=== PATIENT | male | born 1965 | race Two or more races ===

== ENCOUNTER 2018-07-29 11:19 | Inpatient (IN) | payer OTHER ==
[2018-07-29 11:45] VITALS: BMI 31.0
--- NOTE | 2018-07-29 13:32 | HP ---
CIWA Score - Admission Criteria [facility] Guidelines: Admission for Medically Managed Detox: Requires at least one of the followin. CIWA greater than 12 2. Seizures within the past 24 hours 3. Delirium tremens within the past 24 hours 4. Hallucinations within the past 24 hours 5. Acute intervention needed for co occurring medical disorder 6. Acute intervention needed for co occurring psychiatric disorder 7. Severe withdrawal that cannot be handled at a lower level of care (continued vomiting, continued diarrhea, abnormal vital signs) requiring intravenous medication and/or fluids 8. 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 utox + bzo cocaine : crack 200 $/day latest use 2 weeks ago , denies IVDU , denies current daily use tobacco : occasional use cannabis : occasional PMHX : liver disease PShx :brain surgery for ICH 12 years ago at [facility] psych : denies SHx : lives in assisted, homeless Exam Limitations: Clinical Condition - Ebola screening Have you traveled outside of the country in the last 21 days: No (N) Have you had contact with anyone from an Ebola affected area: No Have you been sick,other than usual withdrawal symptoms: No Do you have a fever: No - Review of Systems Constitutional: See HPI EENT: reports: No Symptoms Reported Respiratory: reports: No Symptoms reported Cardiac: reports: No Symptoms Reported GI: reports: No Symptoms Reported : reports: No Symptoms Reported Musculoskeletal: reports: See HPI Integumentary: reports: Rash (on face , given ointment at [facility]) Neuro: reports: See HPI, Pre-Existing Deficit, Weakness, Unsteady Gait Endocrine: reports: No Symptoms Reported Psychiatric: reports: Orientated x3, Anxious Patient History - Patient Medical History Hx Anemia: No Hx Asthma: No Hx Chronic Obstructive Pulmonary Disease (COPD): No Hx Cancer: No Hx Cardiac Disorders: No Hx Congestive Heart Failure: No Hx Hypertension: No Hx Hypercholesterolemia: No HX Cerebrovascular Accident: Yes (WITH RIGHT SIDED WEAKNESS IN 04/2010 ) Hx Seizures: No Hx Dementia: Yes (FORGETFULNESS DUE TO STROKE) Hx Diabetes: No Hx Gastrointestinal Disorders: No Hx Liver Disease: Yes (BUT NOT SURE WHAT THE DX) Hx Genitourinary Disorders: No Hx Sexually Transmitted Disorders: No Hx Renal Disease (ESRD): No Hx Thyroid Disease: No Hx Human Immunodeficiency Virus (HIV): No (NEGATIVE HX) Hx Hepatitis C: (NOT SURE BUT SAYS HAS "A BAD LIVER BUT NOT ALL THAT BAD") Hx Depression: Yes (B/C LIVE BY MYSELF) Hx Suicide Attempt: No (DENIES) Hx Bipolar Disorder: No Hx Schizophrenia: No - Patient Surgical History Past Surgical History: Yes Hx Neurologic Surgery: Yes (left craniotomy in 2009 (stroke)) Hx Cataract Extraction: No Hx Cardiac Surgery: No Hx Lung Surgery: No Hx Breast Surgery: No Hx Breast Biopsy: No Hx Abdominal Surgery: No Hx Appendectomy: No Hx Cholecystectomy: No Hx Genitourinary Surgery: No Hx Section: No Hx Orthopedic Surgery: No Anesthesia Reaction: No - PPD History Date: 12/04/15 - Smoking Cessation Smoking history: Current every day smoker Have you smoked in the past 12 months: Yes Aproximately how many cigarettes per day: 2 Hx Chewing Tobacco Use: No Initiated information on smoking cessation: No - Substances Abused Crack Route: Smoking Frequency: 1-2 times per week Amount used: $100 Age of first use: 31 Date of Last Use: 07/18/18 Alcohol-beer Route: Oral Frequency: Daily Amount used: 4-5 (24 oz.) Age of first use: 31 Date of Last Use: 07/25/18 Family Disease History - Family Disease History Family Disease History: Other: Brother (SUBSTANCE ABUSE), Sister (SUBSTANCE ABUSE) Admission Physical Exam BHS - Vital Signs Vital Signs: Vital Signs - 24 hr 07/29/18 11:37 Temperature 98.2 F Pulse Rate 79 Respiratory 20 Rate Blood Pressure 97/69 - Physical General Appearance: Yes: No Apparent Distress, Other (ambulating with cane) HEENTM: Yes: Hearing grossly Normal, Normocephalic, Normal Voice Respiratory: Yes: Chest Non-Tender, Lungs Clear, Normal Breath Sounds Neck: Yes: No masses,lesions,Nodules, Trachea in good position Breast: Yes: Breast Exam Deferred, Within Normal Limits Cardiology: Yes: Regular Rhythm, Regular Rate, S1, S2 Abdominal: Yes: Normal Bowel Sounds, Soft, Protuberent Genitourinary: Yes: Within Normal Limits Back: Yes: Muscle Spasm Musculoskeletal: Yes: Muscle weakness (r-sided weakness s/p CVA), Other Extremities: Yes: Normal Capillary Refill, Normal Inspection, Normal Range of Motion Neurological: Yes: Normal Mood/Affect, Other (R-sided weakness , r hand contracture , mild foot drop right) Integumentary: Yes: Normal Color, Dry, Warm BHS Breath Alcohol Content Breath Alcohol Content: 0 Urine Drug Screen - Results Drug Screen Negative: No Urine Drug Screen Results: BZO-Benzodiazepines Inpatient Rehab Admission - Initial Determination Are CD services needed?: Yes Free of communicable disease: Yes Not in need of hospitalization: Yes - Rehab Admission Criteria Previous failed treatment: Yes Poor recovery environment: Yes Comorbidities: Yes Lacks judgement: Yes Patient is meeting Inpatient Rehab admission criteria:: Yes
[2018-07-29] MEDS ORDERED: MAG HYDROX/AL HYDROX/SIMETH 30 ML UNIT-DOSE CUP PO PRN (13:41)
[2018-07-29] MEDS ORDERED: MAGNESIUM HYDROX 2400MG/30ML ORAL SUSPENSION 30 ML CUP PO PRN (13:41)
[2018-07-29] MEDS ORDERED: P-EPHED 60MG/TRIPROLIDI 2.5MG TABLET PO PRN (13:41)
[2018-07-29] MEDS ORDERED: MAGNESIUM CITRATE 300 ML BOTTLE PO PRN (13:41)
[2018-07-29] MEDS ORDERED: MENTHOL/PHENOL 1 EACH UD MM PRN (13:41)
[2018-07-29] MEDS ORDERED: ACETAMINOPHEN 325 MG TABLET (FP) PO PRN (13:41)
[2018-07-29] MEDS ORDERED: guaiFENesin/D-METHORPHAN HB 10 ML UNIT-DOSE CUPS PO PRN (13:41)
[2018-07-29] MEDS ORDERED: cloNIDine HCL 0.1 MG TABLET PO PRN (13:43)
[2018-07-29 21:03] LABS: URINE APPEARANCE SLCLOUDY; URINE BILIRUBIN NEGATIVE (<2.0 mg/dL); URINE COLOR YELLOW; URINE GLUCOSE (UA) NEGATIVE (NEGATIVE); URINE KETONE NEGATIVE (NEGATIVE); URINE LEUK ESTERASE NEGATIVE (NEGATIVE); URINE NITRITE NEGATIVE (NEGATIVE); URINE PROTEIN NEGATIVE (NEGATIVE); URINE UROBILINOGEN NEGATIVE mg/dL (0.2-1.0)
[2018-07-29] MEDS: THIAMINE HCL 100 MG TABLET (FP) PO SCH (21:34)
[2018-07-29] MEDS: GABAPENTIN 300 MG CAPSULE (FP) PO SCH ×2 (21:34)
[2018-07-29] MEDS ORDERED: TUBERCULIN PPD 5 TU/0.1ML VIAL ID ONE (22:12)
[2018-07-30] MEDS: GABAPENTIN 300 MG CAPSULE (FP) PO SCH ×3 (06:27→22:00)
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
[2018-07-30] MEDS: BACLOFEN 10 MG TABLET (FP) PO SCH (10:03)
[2018-07-30] MEDS: PRENATAL VITAMINS W/ FOLIC ACID TABLET (FP) PO SCH (10:03)
[2018-07-30 11:31] LABS: HEMATOCRIT 48.7 % (35.4-49); HEMOGLOBIN 16.2 GM/dL (11.7-16.9); MCH 32.3 pg (25.7-33.7); MCHC 33.3 g/dl (32.0-35.9); MEAN CELL VOLUME 97.1 fl (80-96); MEAN PLT VOLUME 8.4 fl (7.5-11.1); PLATELET COUNT 150 K/MM3 (134-434); RBC 5.01 M/mm3 (4.00-5.60); RDW 13.9 % (11.9-15.9); WHITE BLOOD COUNT 4.7 K/mm3 (4.0-10.0)
[2018-07-30 11:42] LABS: ALBUMIN 3.9 g/dl (3.4-5.0); ALK PHOS 61 U/L (45-117); ANION GAP 6 MMOL/L (8-16); BILIRUBIN,TOTAL 0.4 mg/dL (0.2-1); BLOOD UREA NITROGEN 15 mg/dL (7-18); CALCIUM 9.2 mg/dL (8.5-10.1); CHLORIDE 100 mmol/L (98-107); CO2 31 mmol/L (21-32); CREATININE 0.9 mg/dL (0.55-1.3); GLUCOSE,RANDOM 85 mg/dL (74-106); POTASSIUM 4.7 mmol/L (3.5-5.1); SGOT/AST 24 U/L (15-37); SGPT/ALT 29 U/L (13-61); SODIUM 136 mmol/L (136-145); TOT PROT 7.9 g/dl (6.4-8.2)
[2018-07-30] MEDS: IBUPROFEN 400 MG TABLET (FP) PO PRN (19:28)
[2018-07-30] MEDS: THIAMINE HCL 100 MG TABLET (FP) PO SCH (22:00)
[2018-07-31] MEDS: GABAPENTIN 300 MG CAPSULE (FP) PO SCH ×3 (06:19→21:26)
[2018-07-31] MEDS: PRENATAL VITAMINS W/ FOLIC ACID TABLET (FP) PO SCH (10:32)
[2018-07-31] MEDS: BACLOFEN 10 MG TABLET (FP) PO SCH (10:32)
[2018-07-31] MEDS: IBUPROFEN 400 MG TABLET (FP) PO PRN (16:58)
[2018-07-31] MEDS: THIAMINE HCL 100 MG TABLET (FP) PO SCH (21:26)
[2018-08-01] MEDS: GABAPENTIN 300 MG CAPSULE (FP) PO SCH ×3 (06:33→21:31)
[2018-08-01] MEDS: PRENATAL VITAMINS W/ FOLIC ACID TABLET (FP) PO SCH (10:34)
[2018-08-01] MEDS: BACLOFEN 10 MG TABLET (FP) PO SCH (10:34)
[2018-08-01] MEDS: THIAMINE HCL 100 MG TABLET (FP) PO SCH (21:30)
[2018-08-01] MEDS: MELATONIN 5 MG TABLETS PO PRN (21:32)
[2018-08-02] MEDS: GABAPENTIN 300 MG CAPSULE (FP) PO SCH ×3 (06:22→21:20)
[2018-08-02] MEDS: IBUPROFEN 400 MG TABLET (FP) PO PRN ×2 (06:23→19:09)
[2018-08-02] MEDS: PRENATAL VITAMINS W/ FOLIC ACID TABLET (FP) PO SCH (10:32)
[2018-08-02] MEDS: BACLOFEN 10 MG TABLET (FP) PO SCH (10:32)
[2018-08-02] MEDS ORDERED: COLLOIDAL OATMEAL 1 BAR EACH TP PRN (10:44)
[2018-08-02] MEDS: TOLNAFTATE 1% CREAM 15 GM TUBE TP SCH ×2 (13:25→21:20)
[2018-08-02] MEDS: MELATONIN 5 MG TABLETS PO PRN (21:20)
[2018-08-02] MEDS: THIAMINE HCL 100 MG TABLET (FP) PO SCH (21:22)
[2018-08-03] MEDS: GABAPENTIN 300 MG CAPSULE (FP) PO SCH ×3 (06:17→21:29)
[2018-08-03] MEDS: BACLOFEN 10 MG TABLET (FP) PO SCH (10:20)
[2018-08-03] MEDS: TOLNAFTATE 1% CREAM 15 GM TUBE TP SCH ×2 (10:20→21:30)
[2018-08-03] MEDS: IBUPROFEN 400 MG TABLET (FP) PO PRN ×2 (10:20→21:29)
[2018-08-03] MEDS: PRENATAL VITAMINS W/ FOLIC ACID TABLET (FP) PO SCH (10:20)
[2018-08-03] MEDS ORDERED: PT OWN MED DRAWER 7, Y5N ONE (14:40)
[2018-08-03] MEDS: THIAMINE HCL 100 MG TABLET (FP) PO SCH (21:29)
[2018-08-03] MEDS: MELATONIN 5 MG TABLETS PO PRN (21:29)
[2018-08-04] MEDS: GABAPENTIN 300 MG CAPSULE (FP) PO SCH ×3 (05:43→21:16)
[2018-08-04] MEDS: PRENATAL VITAMINS W/ FOLIC ACID TABLET (FP) PO SCH (10:32)
[2018-08-04] MEDS: BACLOFEN 10 MG TABLET (FP) PO SCH (10:32)
[2018-08-04] MEDS: TOLNAFTATE 1% CREAM 15 GM TUBE TP SCH ×2 (10:32→23:09)
[2018-08-04] MEDS: MELATONIN 5 MG TABLETS PO PRN (21:16)
[2018-08-04] MEDS: THIAMINE HCL 100 MG TABLET (FP) PO SCH (21:16)
[2018-08-04] MEDS: IBUPROFEN 400 MG TABLET (FP) PO PRN (21:17)
[2018-08-05] MEDS: GABAPENTIN 300 MG CAPSULE (FP) PO SCH ×3 (05:45→21:25)
[2018-08-05] MEDS: IBUPROFEN 400 MG TABLET (FP) PO PRN ×2 (07:36→21:24)
[2018-08-05] MEDS: TOLNAFTATE 1% CREAM 15 GM TUBE TP SCH ×2 (10:59→21:25)
[2018-08-05] MEDS: BACLOFEN 10 MG TABLET (FP) PO SCH (10:59)
[2018-08-05] MEDS: PRENATAL VITAMINS W/ FOLIC ACID TABLET (FP) PO SCH (10:59)
[2018-08-05] MEDS: THIAMINE HCL 100 MG TABLET (FP) PO SCH (21:25)
[2018-08-05] MEDS: MELATONIN 5 MG TABLETS PO PRN (21:25)
[2018-08-06] MEDS: GABAPENTIN 300 MG CAPSULE (FP) PO SCH ×3 (05:38→21:12)
[2018-08-06] MEDS: BACLOFEN 10 MG TABLET (FP) PO SCH (09:10)
[2018-08-06] MEDS: TOLNAFTATE 1% CREAM 15 GM TUBE TP SCH ×2 (09:11→21:13)
[2018-08-06] MEDS: PRENATAL VITAMINS W/ FOLIC ACID TABLET (FP) PO SCH (09:11)
--- NOTE | 2018-08-06 10:40 | PN ---
[facility] Progress Note Note: Psychiatry Attending's note : Called to address this patient's request to leave the program. Came to meet with patient in order to explore his reasons. Chart reviewed. Brief meeting with Mr Ramos.Patient has changed his mind. Wants to stay. Issue resolved.
[2018-08-06] MEDS: IBUPROFEN 400 MG TABLET (FP) PO PRN ×2 (14:13→21:13)
[2018-08-06] MEDS: THIAMINE HCL 100 MG TABLET (FP) PO SCH (21:13)
[2018-08-07] MEDS: GABAPENTIN 300 MG CAPSULE (FP) PO SCH (06:24)
[2018-08-07] MEDS: IBUPROFEN 400 MG TABLET (FP) PO PRN (06:26)
[2018-08-07 06:56] VITALS: BP 126/88; PULSE 73; TEMP 98.2
[2018-08-07] MEDS: PRENATAL VITAMINS W/ FOLIC ACID TABLET (FP) PO SCH (09:25)
[2018-08-07] MEDS: BACLOFEN 10 MG TABLET (FP) PO SCH (09:25)
[2018-08-07] MEDS: TOLNAFTATE 1% CREAM 15 GM TUBE TP SCH (09:25)
--- NOTE | 2018-08-07 10:18 | PN ---
[facility] Progress Note Note: Patient requests to be discharged before his scheduled discharge date for personal reason. He was seen by the weekend counselor and was given a referral to [facility] for outpatient treatment. He is stable for discharge today. Refer to staff note for further information
== END 2018-08-07 10:05 | disposition home or self-care (01) | DRG 772 ==
LOC: YASAS 11:19 → Y3W 15:02
PROVIDERS: ADMIT Psychiatry & Neurology Psychiatry; ATTEND Psychiatry & Neurology Psychiatry
PROC: HZ42ZZZ Group Counseling for Substance Abuse Treatment, Cognitive-Behavioral (ICD-10-PCS; principal; 2018-07-29)
DX: F10.20 Alcohol dependence, uncomplicated (principal); F14.20 Cocaine dependence, uncomplicated; F12.20 Cannabis dependence, uncomplicated; F10.282 Alcohol dependence with alcohol-induced sleep disorder; F32.9 Major depressive disorder, single episode, unspecified; F03.90 Unspecified dementia, unspecified severity, without behavioral disturbance, psychotic disturbance, mood disturbance, and anxiety; I69.851 Hemiplegia and hemiparesis following other cerebrovascular disease affecting right dominant side
CPT/HCPCS: 36415; 80053; 81003; 85027; 86593; J0475